=== PATIENT | female | born 1955 | race Caucasian/White ===

== ENCOUNTER 2025-05-02 10:11 | Inpatient (IN) ==
[2025-05-02] MEDS: SODIUM CHLORIDE 0.9% 500 ML IV SCH (10:39)
--- NOTE | 2025-05-02 10:56 | XRay Report ---
XR chest 1V portable CLINICAL HISTORY: Sepsis COMPARISON STUDY: 01/08/2022 FINDINGS: There is mild cardiomegaly without pulmonary vascular congestion. No consolidation or pleur al effusion seen. No pneumothorax. IMPRESSION: No acute findings. ACT 112: Negative or not required by law. Electronically signed by: Jones Lewis M.D. 05/02/2025 10:53 AM
[2025-05-02 10:57] LABS: Base Excess VBG 0.7 mEq/L; HCO3 VBG 28 mmol/L; Oxygen Saturation VBG 65.8 %; PCO2 VBG 54 mmHg (38-50); PO2 VBG 38 mmHg; pH VBG 7.32 (7.36-7.41)
[2025-05-02 11:03] LABS: Hematocrit (blood only) 35.3 % (37.0-47.0); Hemoglobin 11.1 g/dl (12.0-16.0); Immature Granulocytes # (auto) 0.02 K/uL (0.01-0.20); Immature Granulocytes % (auto) 0.2 %; Mean Corpuscular Hemoglobin 28.3 pg (25.0-34.0); Mean Corpuscular Volume 90.1 fL (80.0-100.0); Platelet Count 216 K/uL (130-400); RDW Standard Deviation 50.8 fL (36.4-46.3); Red Blood Count 3.92 M/uL (4.20-5.40); White Blood Count 8.26 K/ul (4.8-10.8)
[2025-05-02 11:20] LABS: Alanine Aminotransferase 8.0 U/L (7-52); Albumin Level 3.2 gm/dl (3.4-5.0); Alkaline Phosphatase 66.0 U/L (34-104); Anion Gap 5.0 (3-11); Bilirubin,Total 0.3 mg/dl (0.2-1.0); Blood Urea Nitrogen 10.0 mg/dl (6-23); Calcium 7.9 mg/dl (8.6-10.3); Carbon Dioxide 29.0 mmol/L (21-32); Chloride 107.0 mmol/L (98-107); Creatinine Clr Calc Pharmacy 48.3 ml/min; Glucose 195.0 mg/dl (70-99(Fasting)); Magnesium 1.7 mg/dl (1.7-2.4); Potassium 3.4 mmol/L (3.5-5.1); Sodium 141.0 mmol/L (136-145); Total Protein 5.5 gm/dl (6.0-8.3)
--- NOTE | 2025-05-02 11:28 | Emergency Department Note ---
Impression & Plan Hypotension, Acute and chronic respiratory failure with hypoxia, Elevated troponin ED Provider Note NAME: NEIL ACEVEDO AGE: 70 SEX: F : 1955 ARRIVES VIA: Ambulance INFORMANT: Patient, ED PROVIDER(S): Deena Shields MD CHIEF COMPLAINT: Shortness of breath, hypotension HPI: This is a 70-year-old female presented for shortness of breath and hypotension. Patient was seen for a cataract surgery at [facility]. Anesthesiologist called me and said the patient had a oxygen saturation between 70 and 80% on room air patient does not wear oxygen at baseline. Also noted to have hypotension with blood pressures between 60 and 80. Patient notes that this is her baseline she does not feel abnormal. She does feel short of breath which is chronic for her. She has COPD and continues to smoke. She reports no nausea, vomiting. No chest pain. She states she has sweats but no fevers. ROS: See above HPI for pertinent positives & negatives. A total of 10 systems reviewed and were otherwise negative. PAST MEDICAL HISTORY: See Below PAST SURGICAL HISTORY: See Below FAMILY HISTORY: See Below SOCIAL HISTORY: See Below HOME MEDICATIONS: See Below ALLERGIES: See Below VITALS: See Below PHYSICAL EXAMINATION: General: Chronically unwell appearing Head: Normocephalic and atraumatic Eyes: Normal inspection, extraocular muscles intact Ear, nose, throat: Normal external exam Neck: Normal range of motion Respiratory: lungs clear to auscultation bilaterally Cardiovascular: Regular rate/rhythm, no murmur GI: soft, nontender, no guarding or rebound Extremities: nontender, moves all extremities Neuro: The patient awake and alert, appropriately conversive, no focal deficits, symmetric faces Skin: Warm, dry, and intact MEDICAL DECISION MAKING: This is a 70-year-old female present for shortness of breath/hypotension. At this time patient has no acute complaints including shortness of breath or chest pain. Will do screening chest x-ray, basic blood work. Assess for sepsis. Bedside echo is limited but does not reveal pericardial effusion or RV dilation. - Blood work reveals no leukocytosis. Does reveal slight anemia. VBG is 7.32/54. Initial lactate slightly elevated at 3.3 -Electrolytes within normal limits -CTA ordered due to unclear cause of hypotension/hypoxia at this time. Patient declines chest pain at this time otherwise. -Repeat blood work shows improved lactic acid level now at 0.8. Blood pressures improved into the 100 systolic after a total of 1 L normal saline. Patient continued to decline any current symptoms. -CT does not reveal signs of pulmonary embolism. Otherwise no acute intrathoracic findings. Mild cardiomegaly with left concentric hypertrophy is noted - Care discussed with Dr. Maynard will evaluate the patient for admission. He requests antibiotics for possible sepsis. Differential diagnosis: Sepsis, ACS, PE, cardiogenic shock, hypovolemia, pulm hypertension Independent History obtained from: [facility] interpreted by me: ECG: ECG independently interpreted by me with normal sinus rhythm, rate of 95, normal UT, incomplete left bundle branch block, normal QTc, no ST segment elevations consistent with STEMI criteria, T wave versions in lead I/aVL Cardiac Monitoring: An order was placed for continuous cardiac monitoring. The monitor shows a rate of 84 with sinus rhythm. Critical Care Note: I have personally spent 34 minutes of critical care time in the direct management of this patient. This includes bedside care, interpretation of diagnostic studies, and testing, discussion with consultants, patient, and family members, and other required patient management activities. This 34 minutes is in excess of all separately billable procedures. Past Med/Surg History Problem List (Updated 05/02/25 @ 17:40 by Deena Shields MD) Bilateral arm weakness Increased abdominal girth Elevated troponin (Acute) Acute and chronic respiratory failure with hypoxia (Acute) Hypotension (Acute) Colon cancer screening Dysphagia Encounter for pre-operative examination Medical History Hoarseness of voice Hemorrhoids Anxiety and depression Smoker currently taking chantix, still smoking 10-12/day Hx of breast cancer 1978 -- radiation and chemo, and surgical intervention Depression Anxiety Hyperlipidemia Sleep disorder Pancolitis Barretts esophagus GERD (gastroesophageal reflux disease) Stress incontinence Fatigue "feels this way all the time, nothing new" Dysphagia Diverticulosis hx Chronic obstructive pulmonary disease inh daily Surgical History History of esophagogastroduodenoscopy (EGD) Hx of colonoscopy Hx of right mastectomy Social History Smoking Status: Current every day smoker Tobacco Type: Cigarettes Cigarettes Per Day: 10-12; Second Hand Exposure: No; Do You Dip or Chew Tobacco: No; Tobacco Cessation Education Requested by Patient: No Hx Alcohol Use: No Hx Substance Use: No Preferred Language: Czech Communication Ability: Effective Senior Sql Server Database Developer Required: No Beliefs That Will Affect Care: None Current Living Situation: Alone Other Information That Helps Us Care for You: No Feels Safe at Home: Yes Safety Concerns: Feels Safe At This Time Assistive Devices: Glasses and Oxygen - Continuous Allergies Allergies Allergy/AdvReac Type Severity Reaction Status Date / Time amoxicillin [From Augmentin] Allergy Severe PROJECTILE Verified 08/14/23 11:48 VOMITING clavulanic acid Allergy Severe PROJECTILE Verified 08/14/23 11:48 [From Augmentin] VOMITING clindamycin Allergy Severe throat Verified 08/14/23 11:48 felt tight Penicillins AdvReac Intermediate itchy Verified 08/14/23 11:48 Home Meds Home Medications Medication Instructions Recorded Confirmed fluticasone fur. 200 mcg-umeclid 0 inh inhalation HS 01/02/21 05/02/25 62.5 mcg-vilant 25 mcg inhalat.powder (Trelegy Ellipta) pantoprazole 40 mg tablet,delayed 40 mg PO HS 01/02/21 05/02/25 release quetiapine 100 mg tablet (Seroquel) 0 mg PO HS 01/02/21 05/02/25 simvastatin 40 mg tablet 40 mg PO HS 01/02/21 05/02/25 amitriptyline 50 mg tablet 100 mg PO QPM 01/08/22 05/02/25 aspirin 81 mg tablet,delayed 81 mg PO HS 01/08/22 05/02/25 release polyethylene glycol 3350 17 17 g PO HS PRN Constipation 01/08/22 05/02/25 gram/dose oral powder (Miralax) simethicone 80 mg chewable tablet 160 mg PO HS 01/08/22 05/02/25 magnesium oxide 400 mg PO QPM 08/14/23 05/02/25 semaglutide 3 mg tablet (Rybelsus) 0 mg PO QAM 08/14/23 05/02/25 varenicline tartrate 1 mg tablet 0 mg PO BID 08/14/23 05/02/25 gabapentin 300 mg capsule 300 mg PO HS 05/02/25 05/02/25 Results & Data (ED) Vital Signs Vital Signs - 24 hr 05/02/25 10:17 05/02/25 10:34 05/02/25 10:35 Temperature 36.5 C Temperature Source Temporal Artery Scan Pulse Rate Pulse Rate [Left Finger] 91 H Respiratory Rate 16 Blood Pressure 73/49 L Blood Pressure [Left Arm] 89/63 L Blood Pressure Mean 57 Blood Pressure Mean [Left Arm] 71 Pulse Oximetry 98 94 Oxygen Delivery Method Room Air Oxygen Flow Rate Sepsis Recent Fever Within 48 Hours No Sepsis New/Unexplained Change in Mental Status N/A Sepsis Action Taken by Nursing No Action Required 05/02/25 10:46 05/02/25 11:05 05/02/25 11:42 Temperature Temperature Source Pulse Rate 99 H Pulse Rate [Left Finger] 85 79 Respiratory Rate 17 Blood Pressure Blood Pressure [Left Arm] 87/63 L 95/68 L Blood Pressure Mean Blood Pressure Mean [Left Arm] 71 77 Pulse Oximetry 100 100 Oxygen Delivery Method Nasal Cannula Nasal Cannula Oxygen Flow Rate 3 3 Sepsis Recent Fever Within 48 Hours Sepsis New/Unexplained Change in Mental Status Sepsis Action Taken by Nursing 05/02/25 11:45 05/02/25 12:05 05/02/25 12:17 Temperature Temperature Source Pulse Rate Pulse Rate [Left Finger] 79 77 Respiratory Rate 22 Blood Pressure Blood Pressure [Left Arm] 81/46 L 81/58 L 85/63 L Blood Pressure Mean Blood Pressure Mean [Left Arm] 57 65 70 Pulse Oximetry 100 Oxygen Delivery Method Nasal Cannula Oxygen Flow Rate 3 Sepsis Recent Fever Within 48 Hours Sepsis New/Unexplained Change in Mental Status Sepsis Action Taken by Nursing 05/02/25 12:30 05/02/25 13:00 Temperature Temperature Source Pulse Rate Pulse Rate [Left Finger] 82 85 Respiratory Rate 18 Blood Pressure Blood Pressure [Left Arm] 105/62 93/79 L Blood Pressure Mean Blood Pressure Mean [Left Arm] 76 83 Pulse Oximetry 100 Oxygen Delivery Method Nasal Cannula Oxygen Flow Rate 3 Sepsis Recent Fever Within 48 Hours Sepsis New/Unexplained Change in Mental Status Sepsis Action Taken by Nursing Laboratory Data 05/02/25 10:42 05/02/25 10:42 Lab Results 05/02/25 05/02/25 05/02/25 Range/Units 10:42 10:49 12:35 WBC 8.26 (4.8-10.8) K/ul RBC 3.92 L (4.20-5.40) M/uL Hgb 11.1 L (12.0-16.0) g/dl POC Hgb 11.6 L (12.0-16.0) g/dl Hct 35.3 L (37.0-47.0) % POC Hct 34 L (37-47) % MCV 90.1 (80.0-100.0) fL MCH 28.3 (25.0-34.0) pg MCHC 31.4 L (32.0-36.0) g/dL RDW Std Deviation 50.8 H (36.4-46.3) fL RDW Coeff of Ashley 15.7 H (11.5-14.5) % Plt Count 216 (130-400) K/uL MPV 11.4 (9.4-12.4) fL Immature Gran % (Auto) 0.2 % Neut % (Auto) 65.6 % Lymph % (Auto) 25.3 % [place] % (Auto) 6.7 % Eos % (Auto) 1.6 % Baso % (Auto) 0.6 % Neut # (Auto) 5.42 (1.40-6.50) K/uL Lymph # (Auto) 2.09 (1.20-3.40) K/uL [place] # (Auto) 0.55 (0.11-0.59) K/uL Eos # (Auto) 0.13 (0.00-0.50) K/uL Baso # (Auto) 0.05 (0.00-0.20) K/uL Immature Gran # (Auto) 0.02 (0.01-0.20) K/uL VBG pH 7.32 L (7.36-7.41) VBG pCO2 54 H (38-50) mmHg VBG pO2 38 mmHg VBG HCO3 28 mmol/L VBG O2 Saturation 65.8 % VBG Base Excess 0.7 mEq/L POC Sodium 142 (135-144) mmol/L Sodium 141 (136-145) mmol/L POC Potassium 3.3 (3.3-5.0) mmol/L Potassium 3.4 L (3.5-5.1) mmol/L POC Chloride 101 (101-112) mmol/L Chloride 107 (98-107) mmol/L Carbon Dioxide 29 (21-32) mmol/L POC Total CO2 26 (24-31) mmol/L Anion Gap 5 (3-11) POC Anion Gap 19.0 (16-25) mmol/L POC BUN 8 (7-18) mg/dl BUN 10 (6-23) mg/dl Creatinine 0.95 (0.6-1.2) mg/dl POC Creatinine 1.1 (0.6-1.3) mg/dl Est Cr Clr Drug Dosing 48.3 ml/min eGFR 64.05 BUN/Creatinine Ratio 10.5 (10-20) Glucose 195 H (70-99(Fasting)) mg/dl POC Glucose (other) 190 H (70-99) mg/dl Lactate 3.3 H* 0.8 (0.4-2.0) mmol/L Calcium 7.9 L (8.6-10.3) mg/dl POC Ioniz Calcium Mayo 1.05 L (1.12-1.32) mmol/l Magnesium 1.7 (1.7-2.4) mg/dl Total Bilirubin 0.3 (0.2-1.0) mg/dl Direct Bilirubin 0.1 (0-0.2) mg/dl AST 14 (13-39) U/L ALT 8 (7-52) U/L Alkaline Phosphatase 66 (34-104) U/L Troponin I High Sens 14.5 H (0-14) pg/ml B-Natriuretic Peptide 251 H (0-100) pg/ml Total Protein 5.5 L (6.0-8.3) gm/dl Albumin 3.2 L (3.4-5.0) gm/dl Procalcitonin 0.03 (0-0.5) ng/ml Administered Medications Sodium Chloride (Nss) 1,000 mls @ 125 mls/hr IV .Q8H HUSSAIN Stop: 05/02/25 22:19 Last Admin: 05/02/25 15:16 Dose: 125 mls/hr Documented By: CARMELINA Nicotine (Nicotine 21 Mg/24 Hr Tdsy) 1 patch TD QAM HUSSAIN Stop: 06/01/25 11:29 Last Admin: 05/02/25 11:45 Dose: 1 patch Documented By: MANOJ Discontinued Medications Sodium Chloride (Nss) 500 mls @ 999 mls/hr IV .Q31M HUSSAIN Stop: 05/02/25 11:15 Last Infusion: 05/02/25 11:19 Dose: Infused Documented By: Admin: 05/02/25 10:39 Dose: 999 mls/hr Documented By: SUMEET Sodium Chloride (Nss) 500 mls @ 999 mls/hr IV .Q31M STA Stop: 05/02/25 12:43 Last Infusion: 05/02/25 12:46 Dose: Infused Documented By: Admin: 05/02/25 12:15 Dose: 999 mls/hr Documented By: MANOJ Ceftriaxone Sodium (Rocephin) 2,000 mg in 50 mls @ 100 mls/hr IV NOW STA Stop: 05/02/25 13:00 Last Infusion: 05/02/25 13:36 Dose: Infused Documented By: Admin: 05/02/25 13:08 Dose: 100 mls/hr Documented By: MANOJ Ioversol (Optiray 320 125ml) 69 ml IV ONCE ONE Stop: 05/02/25 11:43 Last Admin: 05/02/25 11:43 Dose: 69 ml Documented By: ASHER Imaging Data Radiologist's Impression: Chest X-Ray 05/02/25 10:32 XR chest 1V portable CLINICAL HISTORY: Sepsis COMPARISON STUDY: 01/08/2022 FINDINGS: There is mild cardiomegaly without pulmonary vascular congestion. No consolidation or pleural effusion seen. No pneumothorax. IMPRESSION: No acute findings. ACT 112: Negative or not required by law. Electronically signed by: Jones Lewis M.D. 05/02/2025 10:53 AM Chest CTA 05/02/25 11:17 CT ANGIOGRAM OF THE CHEST CLINICAL HISTORY: Shortness of breath. Hypoxia. Evaluate for pulmonary embolus. COMPARISON STUDY: Chest radiograph January 08, 2022 and chest radiograph performed earlier today. TECHNIQUE: Following the IV administration of 69 cc of Optiray 320, CT angiogram of the chest was performed from the upper abdomen to the thoracic inlet utilizing the pulmonary embolus protocol. Images are reviewed in the axial, sagittal, and coronal planes. 3-D MIPS images are created and assessed. IV contrast was administered without complication. A dose lowering technique was utilized adhering to the principles of ALARA. CT DOSE: 514.28 mGy.cm FINDINGS: No pulmonary emboli are identified. There is no pericardial effusion. Note is made of mild cardiomegaly with concentric left ventricular hypertrophy. No pneumothorax or pleural effusion is present. Subpleural lower lobe densities favor atelectasis. There is no consolidation to suggest pneumonia. Right apical densities are likely treatment related. A 6 mm left upper lobe nodule within the medial aspect of the apicoposterior segment on image 174 of 221 is noted. There is mild emphysema. There are old bilateral rib fractures. No acute rib fractures are identified. A prominent precarinal lymph node on image 147 measures 1.3 x 1.1 cm. Status post right mastectomy. Visualized portions of the upper abdomen are unremarkable. IMPRESSION: 1. No pulmonary emboli identified. 2. No acute intrathoracic findings. Subpleural densities suggestive of atelectasis. No consolidation to suggest pneumonia. 3. Mild cardiomegaly. Concentric left ventricular hypertrophy. 4. Low suspicion 6 mm upper lobe nodule. This is likely benign. A chest CT in 6 months to ensure stability is recommended. 3. Prominent precarinal lymph node which is also likely benign. This can be assessed on the follow-up chest CT. ACT 112: Negative or not required by law. Electronically signed by: Price Irwin M.D. 05/02/2025 11:59 AM Discharge Plan Visit Data Chief Complaint: Shortness of Breath/Dyspnea ED Provider: Deena Shields Discharge Problem: Hypotension, Acute and chronic respiratory failure with hypoxia, Elevated troponin Patient Disposition: Admitted As Inpatient Condition: Serious
[2025-05-02] MEDS: OPTIRAY 320 125ml IV ONE (11:43)
[2025-05-02] MEDS: NICOTINE 21 MG/24 HR TDSY TD SCH (11:45)
--- NOTE | 2025-05-02 12:01 | CT Scan Report ---
CT ANGIOGRAM OF THE CHEST CLINICAL HISTORY: Shortness of breath. Hypoxia. Evaluate for pulmonary embolus. COMPARISON STUDY: Chest radiograph January 08, 2022 and chest radiograph performed earlier today. TECHNIQUE: Following the IV administration of 69 cc of Optiray 320, CT angiogram of the chest was per formed from the upper abdomen to the thoracic inlet utilizing the pulmonary embolus protocol. Images are reviewed in the axial, sagittal, and coronal planes. 3-D MIPS images are created and assessed. IV contrast was administered without complication. A dose lowering technique was utilized adhering to the principles of ALARA. CT DOSE: 514.28 mGy.cm FINDINGS: No pulmonary emboli are identified. There is no pericardial effusion. Note is made of mild cardiomegaly with concentric left ventricular hypertrophy. No pneumothorax or pleural effusion is pre sent. Subpleural lower lobe densities favor atelectasis. There is no consolidation to suggest pneumon ia. Right apical densities are likely treatment related. A 6 mm left upper lobe nodule within the med ial aspect of the apicoposterior segment on image 174 of 221 is noted. There is mild emphysema. There are old bilateral rib fractures. No acute rib fractures are identified. A prominent precarinal lymph node on image 147 measures 1.3 x 1.1 cm. Status post right mastectomy. Visualized portions of the up per abdomen are unremarkable. IMPRESSION: 1. No pulmonary emboli identified. 2. No acute intrathoracic findings. Subpleural densities suggestive of atelectasis. No consolidation to suggest pneumonia. 3. Mild cardiomegaly. Concentric left ventricular hypertrophy. 4. Low suspicion 6 mm upper lobe nodule. This is likely benign. A chest CT in 6 months to ensure stab ility is recommended. 3. Prominent precarinal lymph node which is also likely benign. This can be assessed on the follow-up chest CT. ACT 112: Negative or not required by law. Electronically signed by: Price Irwin M.D. 05/02/2025 11:59 AM
[2025-05-02] MEDS: SODIUM CHLORIDE 0.9% 500 ML IV STA (12:15)
[2025-05-02] MEDS: cefTRIAXone SODIUM 2,000 MG/50 ML BAG IV STA (13:08)
--- NOTE | 2025-05-02 13:16 | History & Physical Report ---
Date of Service May 02, 2025 Assessment & Plan (1) Hypotension: (2) Acute and chronic respiratory failure with hypoxia: (3) Elevated troponin: (4) Increased abdominal girth: (5) Bilateral arm weakness: Plan 70-year-old female who presents from cataract surgery with hypotension and hypoxia. Patient is a known noncompliant history continues to smoke is diagnosed with COPD and takes inhaled medications. Patient also does take semaglutide for diabetes but is generally noncompliant with her diabetic diet. She has no direct cause easily identifiable for her hypotension she does not appear to be hypovolemic she has no cardiac signs of heart failure at this time to be concern for this to be cardiogenic and she has no infectious etiology although urine culture has not been obtained yet. #Hypotension concern for sepsis at this point in time. We route blood cultures were obtained urine cultures pending and she will be on Rocephin. There is a BNP pending as if this were to be cardiogenic as well as an echocardiogram to look at ejection fraction. Additional fluid resuscitation be given 500 cc and she will be giving an additional liter over today. As mentioned she is not exhibiting signs of heart failure at this time #Acute on chronic respiratory failure with hypoxia. Certainly she has a history of COPD she continues to smoke she typically takes Trelegy, this will be continued this will be continued and she will be augmented with her oxygen. There is no overt signs of infection or wheezing. Patient has probably given a nicotine patch #Elevated troponin. This is likely demand ischemia. Echocardiogram as mentioned will be obtained for regional wall motion abnormalities and additional troponins will be checked. The patient does not have any chest pain at this time nor does she have any acute EKG changes this is not acute coronary syndrome #Increased abdominal girth. This is concerning with early satiety. CT scan abdomen pelvis with oral contrast is ordered and pending. She does not have a direct fluid wave on examination to be consistent with ascites #Bilateral arm weakness. Patient states she did have exposure to a tick bite. Lyme testing is ordered. Consideration of cervical spine testing once her acute illness is passed. DVT prevention is heparin therapy History of Present Illness Primary Care Provider: NO PCP 70-year-old female referred from outpatient ophthalmology surgery center due to hypotension and hypoxia. Patient was scheduled for cataract surgery today. Patient reportedly had no anesthesia there. Able to perform 1 cataract under anesthesia. Patient was transferred to the [facility] where she is found to be hypotensive and hypoxic. She required oxygen supplementation. She received the 1000 cc of fluid bolus. Initial lactic acid was 3.3. Initial screening evaluation including a chest x-ray and CT angiogram with did not show signs of infection she did not exhibit clinical signs of congestive heart failure (or any on imaging) initial EKG was sinus rhythm initial troponin was unremarkable. Patient persist with some hypotension although she had good perfusion she was mentating appropriately. She states her only issues prehospital or the fact that she is increasing bilateral upper arm weakness. She feels she has had early satiety but has had weight gain with increasing abdominal girth. There is no comment on CT angiography in the intra-abdominal changes but a formal CT abdomen is pending bedside echocardiogram by emergency medicine did not reveal pericardial effusion and urine analysis was yet to be obtained. Blood cultures were obtained and Rocephin was initiated Allergies Allergy/AdvReac Type Severity Reaction Status Date / Time amoxicillin [From Augmentin] Allergy Severe PROJECTILE Verified 08/14/23 11:48 VOMITING clavulanic acid Allergy Severe PROJECTILE Verified 08/14/23 11:48 [From Augmentin] VOMITING clindamycin Allergy Severe throat Verified 08/14/23 11:48 felt tight Penicillins AdvReac Intermediate itchy Verified 08/14/23 11:48 Home Medications Medication Instructions Recorded Confirmed Type fluticasone fur. 200 mcg-umeclid 0 inh inhalation HS 01/02/21 05/02/25 History 62.5 mcg-vilant 25 mcg inhalat.powder (Trelegy Ellipta) pantoprazole 40 mg tablet,delayed 40 mg PO HS 01/02/21 05/02/25 History release quetiapine 100 mg tablet (Seroquel) 0 mg PO HS 01/02/21 05/02/25 History simvastatin 40 mg tablet 40 mg PO HS 01/02/21 05/02/25 History amitriptyline 50 mg tablet 100 mg PO QPM 01/08/22 05/02/25 History aspirin 81 mg tablet,delayed 81 mg PO HS 01/08/22 05/02/25 History release polyethylene glycol 3350 17 17 g PO HS PRN Constipation 01/08/22 05/02/25 History gram/dose oral powder (Miralax) simethicone 80 mg chewable tablet 160 mg PO HS 01/08/22 05/02/25 History magnesium oxide 400 mg PO QPM 08/14/23 05/02/25 History semaglutide 3 mg tablet (Rybelsus) 0 mg PO QAM 08/14/23 05/02/25 History varenicline tartrate 1 mg tablet 0 mg PO BID 08/14/23 05/02/25 History gabapentin 300 mg capsule 300 mg PO HS 05/02/25 05/02/25 History Past Med/Surg History Problem List (Updated 05/02/25 @ 13:19 by Eric Cruz MD) Bilateral arm weakness Increased abdominal girth Elevated troponin Acute and chronic respiratory failure with hypoxia Hypotension Colon cancer screening Dysphagia Encounter for pre-operative examination Medical History Hoarseness of voice Hemorrhoids Anxiety and depression Smoker currently taking chantix, still smoking 10-12/day Hx of breast cancer 1978 -- radiation and chemo, and surgical intervention Depression Anxiety Hyperlipidemia Sleep disorder Pancolitis Barretts esophagus GERD (gastroesophageal reflux disease) Stress incontinence Fatigue "feels this way all the time, nothing new" Dysphagia Diverticulosis hx Chronic obstructive pulmonary disease inh daily Surgical History History of esophagogastroduodenoscopy (EGD) Hx of colonoscopy Hx of right mastectomy Social History Smoking Status: Current every day smoker Tobacco Type: Cigarettes Cigarettes Per Day: 10-12; Second Hand Exposure: No; Do You Dip or Chew Tobacco: No; Hx Alcohol Use: No Hx Substance Use: No Preferred Language: Nepali Communication Ability: Effective Coat Maker Required: No Beliefs That Will Affect Care: None Current Living Situation: Alone Feels Safe at Home: Yes Assistive Devices: None Review of Systems Review of Systems: Mild distress and fatigue patient does not appear to be in as much distress as her hypertension would suggest no headache, postoperative visual changes, patient wearing dark glasses. no speech or swallowing issues no chest pain, pressure or palpitations, patient complains of diaphoresis with exertion no shortness of breath, cough or wheezes no abdominal pain, nausea or vomiting, early satiety increased abdominal girth and increased weight no dysuria, hematuria or frequency no focal joint pain or swelling no back pain, CVA tenderness or radicular pain no bruising, bleeding or rashes Patient complains of bilateral upper arm weakness no complaints of anxiety or depression.. Physical Exam Physical Exam: The patient appeared well nourished and normally developed. Vital signs as documented. Head exam is normocephalic atraumatic patient is wearing dark glasses Neck is without JVD, thyromegaly, or carotid bruits. Lungs are clear to auscultation, there is an occasional scant wheeze, no focal loss of breath sounds no dullness at the bases Cardiac exam, Rhythm is regular.. No murmurs, rubs or gallops. Abdominal exam reveals normal bowel sounds, soft protuberant no direct fluid wave does have some tenderness in the right upper quadrant this is not Carrillo sign though Extremities are nonedematous and both pedal pulses are present capillary refill is good Neurologic exam is alert and oriented, no focal loss of strength or sensation she does have difficulty lifting her arms above shoulder height there are no focal losses of strength Skin is without bruises or rashes Psychologically is without concerns for anxiety or depression.. Results & Data Results & Data Vital Signs (Past 12 Hours) Vital Signs Temp Pulse Pulse Resp BP BP Pulse Ox 05/02/25 12:30 82 105/62 05/02/25 12:17 77 22 85/63 L 100 05/02/25 12:05 81/58 L 05/02/25 11:45 79 81/46 L 05/02/25 11:42 79 95/68 L 100 05/02/25 11:05 85 17 87/63 L 100 05/02/25 10:46 99 H 05/02/25 10:35 94 05/02/25 10:34 91 H 16 89/63 L 98 05/02/25 10:17 97.7 F 73/49 L O2 Del Method O2 Flow Rate 05/02/25 12:30 05/02/25 12:17 Nasal Cannula 3 05/02/25 12:05 05/02/25 11:45 05/02/25 11:42 Nasal Cannula 3 05/02/25 11:05 Nasal Cannula 3 05/02/25 10:46 05/02/25 10:35 Room Air 05/02/25 10:34 05/02/25 10:17 Laboratory Results Reviewed CBC mild leukocytosis Reviewed chemistry normal renal function, mild hypokalemia Reviewed troponin minorly low elevation of 14.5 (normal is 14) repeat pending Initial lactic acid 3.3 repeat 0.8 partial volume resuscitation given Code Status & VTE Plan VTE Prophylaxis Plan VTE Prophylaxis will be ordered: Yes PG Care Time/CCT Total # of Minutes Spent Total Time Spent with Patient: Total time spent is greater than 50% in coordination of care (as documented) at patient's floor/unit and/or counseling patient: Coding Level of Care Code 04279 INT INP/OBS CARE 3/75MIN Diagnoses Hypotension I95.9 Acute and chronic respiratory failure with hypoxia J96.21 Elevated troponin R79.89 Increased abdominal girth R19.8 Bilateral arm weakness R29.898
[2025-05-02] MEDS ORDERED: ACETAMINOPHEN 325 MG TAB PO PRN (14:20)
[2025-05-02] MEDS ORDERED: ONDANSETRON INJ 2 MG/ML 2 ML VIAL IV PRN (14:20)
[2025-05-02] MEDS ORDERED: POLYETHYLENE (MIRALAX) 17 GM PACK PO PRN (14:20)
[2025-05-02 14:22] LABS: Appearance Urine Clear (Clear); Bacteria Urine Automated 4+ (None Seen); Cast Urine Automated 0-2 /lpf (0-2); Glucose Urine UA Negative (Negative); RBC Urine Automated 0-2 /hpf (0-2)
[2025-05-02] MEDS: SODIUM CHLORIDE 0.9% 1,000 ML IV SCH (15:16)
--- NOTE | 2025-05-02 17:20 | XCELERA ---
[id number] \\[email or web address]\[id number]}___[id number]
--- NOTE | 2025-05-02 18:23 | Electrocardiogram Report ---
Test Reason : Blood Pressure : */* mmHG Vent. Rate : 95 BPM Atrial Rate : 95 BPM P-R Int : 208 ms QRS Dur : 108 ms QT Int : 394 ms P-R-T Axes : 60 -30 89 degrees QTcB Int : 495 ms Normal sinus rhythm with sinus arrhythmia Left axis deviation Left ventricular hypertrophy with repolarization abnormality Prolonged QT Abnormal ECG Confirmed by Sohail Velez ([id number]) on 05/02/2025 6:22:48 PM Referred By: Confirmed By: Sohail Velez
--- NOTE | 2025-05-02 18:31 | CT Scan Report ---
EXAMINATION: CT of the abdomen and pelvis performed without contrast TECHNIQUE: Helical CT images from the lung bases through the symphysis pubis were obtained without contrast. Coronal and sagittal reformatted images were generated at a workstation for further assessment. Dose reduction techniques were achieved by using automatic exposure control and/or adjustment of mA and/or kV according to patient size and/or use of iterative reconstruction technique. COMPARISON: None HISTORY: Abdominal pain FINDINGS: Lower chest: No consolidation. No pleural effusion or pneumothorax. Mild bibasilar subsegmental atelectasis. Liver: No suspicious liver lesions. Gallbladder: No gallstones. No evidence of acute cholecystitis. Spleen: Normal size. Pancreas: No suspicious pancreatic lesions. The pancreatic duct is not dilated. Adrenal glands: No adrenal nodules. Kidneys: No hydronephrosis or obstructing renal stones. Bladder / Pelvic organs: Unremarkable. Bowel: No bowel obstruction. No abnormal bowel wall thickening. The appendix is unremarkable. Mild left colonic diverticulosis without diverticulitis. Moderate distention of the stomach. Lymph nodes: No retroperitoneal, mesenteric, or pelvic lymphadenopathy. Peritoneum / Retroperitoneum: No free fluid or air within the abdomen. Vessels: No infrarenal aortic aneurysm. Moderate aortoiliac calcification. Bones and soft tissues: No suspicious lesion in the bones. IMPRESSION: There is no acute finding in the abdomen or pelvis. Moderate gastric distention. Electronically signed by Sohail Nance 05-02-2025 6:30 PM
[2025-05-02] MEDS: COMPOUNDED EYE OPR SCH (18:34)
[2025-05-02] MEDS ORDERED: MELATONIN 3 MG TAB PO PRN (18:38)
[2025-05-02] MEDS ORDERED: NON-FORMULARY MEDICATION (Fluticasone-Umeclidin-Vilanter [Trelegy Ellipta] 200-62.5-25 mcg INH SCH (21:00)
[2025-05-02] MEDS: INFLUENZA VACC TS2025-26(65y+)/PF (IIV3) 0.5mL Syr IM ONE (21:51)
[2025-05-02] MEDS: PNEUMOCOCCAL VACCINE (PCV20) 20-VAL CONJ-DIP CRM/PF 0.5 ML SYR IM ONE (21:52)
[2025-05-02] MEDS: FLUTICASONE FUROATE 200MCG 14 PUFFS/INHALER INH SCH (21:54)
[2025-05-02] MEDS: UMECLIDINIUM/VILANTEROL 62.5/25MCG 7 PUFFS/INHALER INH SCH (21:55)
[2025-05-02] MEDS: SIMVASTATIN 40 MG TAB PO SCH (21:57)
[2025-05-02] MEDS: MAGNESIUM OXIDE 400 MG TAB PO SCH (21:57)
[2025-05-02] MEDS: GABAPENTIN 300 MG CAP PO SCH (21:57)
[2025-05-02] MEDS: AMITRIPTYLINE HCL 50 MG TAB PO SCH (21:57)
[2025-05-02] MEDS: ASPIRIN 81 MG ECTAB PO SCH (21:57)
[2025-05-02] MEDS: HEPARIN SOD 5,000 UNIT/0.5 ML VIAL SQ SCH (21:59)
[2025-05-03 06:56] LABS: Hematocrit (blood only) 37.5 % (37.0-47.0); Hemoglobin 11.7 g/dl (12.0-16.0); Mean Corpuscular Hemoglobin 27.9 pg (25.0-34.0); Mean Corpuscular Volume 89.3 fL (80.0-100.0); Platelet Count 198 K/uL (130-400); RDW Standard Deviation 51.7 fL (36.4-46.3); Red Blood Count 4.20 M/uL (4.20-5.40); White Blood Count 6.40 K/ul (4.8-10.8)
[2025-05-03 07:20] LABS: Anion Gap 4.0 (3-11); Blood Urea Nitrogen 8.0 mg/dl (6-23); Calcium 8.0 mg/dl (8.6-10.3); Carbon Dioxide 31.0 mmol/L (21-32); Chloride 108.0 mmol/L (98-107); Creatinine Clr Calc Pharmacy 46.2 ml/min; Glucose 114.0 mg/dl (70-99(Fasting)); Magnesium 2.1 mg/dl (1.7-2.4); Potassium 4.0 mmol/L (3.5-5.1); Sodium 143.0 mmol/L (136-145)
[2025-05-03] MEDS: COMPOUNDED EYE OPR SCH (08:15)
[2025-05-03] MEDS: REMOVE NICODERM PATCH SCH (09:50)
[2025-05-03] MEDS: cefTRIAXone SODIUM 2,000 MG/50 ML BAG IV SCH (13:13)
--- NOTE | 2025-05-03 18:04 | Hospitalist Progress Note ---
Date of Service May 03, 2025 Assessment & Plan (1) Hypotension: (2) Acute and chronic respiratory failure with hypoxia: (3) Elevated troponin: (4) Increased abdominal girth: (5) Bilateral arm weakness: Plan 70-year-old woman admitted from cataract surgery with hypotension and hypoxia. Admission testing only notable for possible urinary tract infection. She had an elevated lactate which quickly resolved with fluid resuscitation. Her troponin had a trivial elevation of 1416. BNP was elevated at 251 and procalcitonin was normal. Hypotension has resolved and hypoxia has resolved. She was treated with IV fluids and supplemental oxygen. She also received IV ceftriaxone for UTI. She has not had any cough chest pain dyspnea and CTA was negative for PE or pulmonary infiltrates so seems unlikely that she had a pneumonia. The hypoxia could have been related to atelectasis. She has had no specific urinary symptoms. # UTI if she does indeed have UTI hypotension could have been related to this and has resolved from this standpoint she is suitable for discharge from the hospital on oral antibiotics, urine culture is pending # bilateral upper extremity pain with exertionbased on my interview with her today this does sound like potentially vascular claudication I am more concerned of that because of her very prominent right carotid bruit that does not seem to be a radiating heart murmur based on her cardiac exam and echo findings. I can hear the sound also in her left carotid though much less prominent. She could have PAD in her subclavian arteries as well as carotid stenosis. She has multiple risk factors for PAD including ongoing smoking - ordered vascular ultrasound of bilateral carotid arteries and bilateral upper extremities - if we cannot get adequate imaging of the subclavian arteries may need to have a CTA of her chest not ideal to do this today since she just had CTPA - ddx is cervical radicular pain or TOS. consider outpatient MRI c-spine if above evaluation negative. # solid and liquid dysphagia, longstanding history of GERD and Hartman's esophagus she does have an endoscopy scheduled for May 09 which is just a week for now as an outpatient in [place]. I recommended that she keep that appointment since if we made a referral here it would delay her care by several months. It sounds like she may have an esophageal stricture, web, or ring, or esophagitis. - continue PPI increase to bid # Abdominal distention - there is nothing to explain this on the CT scan other than some gastric distention. Endoscopy is the next appropriate step. As discussed above. she does not report nausea and vomiting but does have early satiety # elevation of HS-troponin. This is a trivial elevation of 14 - 16 with flat trend and no evidence of ACS. Recent coronary angiogram and PCI not performed. Related to demand ischemia from hypotension and hypoxia. - continue ASA # tobacco nicotine dependence - cont nicotine patch, employee counselor cessation # hx breast cancer - on the right s/p lymph node dissection. This was treated 30 years ago and no recurrence. Reassured her and her sister by phone that its unlikely that any of the above symptoms are related to cancer recurrence based on the information that we have at this time. # DVT ppx - bid SQ heparin Admission and Anticipated Discharge Date Admission Date: May 02, 2025 Subjective Reason for Admit: Arm pain, dysphagia, and low blood pressure. The patient reports muscular pain in both arms for 6 weeks, occurring with use but not at rest. Pain subsides after resting, taking up to 2 hours to finish a shower. Pain also occurs when lifting things not just when arms overhead. No muscle tenderness. Experiences numbness and tingling in R hand, which becomes cold. Left arm pain is less severe but similar. No neck pain or weakness in arms. Left-handed. Previous neck pain visit to PCP suggested enlarged lymph node. No history of blocked arteries or stents. Feet turn purple, face turns red and purplish when bending over. No stroke-like symptoms. Concerned about heart and neck issues. No echocardiogram history. Cardiac cath this spring, no PCI needed. No shortness of breath, fatigue, or leg pain when walking. Shoulder x- rays done, on omeprazole for a year. Diagnosed with Hartman's esophagus, difficulty swallowing small bites and liquids, no regurgitation. Concerned about cancer cells. No dysuria, urinary frequency, fevers, chills, or back pain. Urine light yellow. Eye surgery appointment yesterday, low blood pressure at 57 systolic, low oxygen levels. Surgery not done due to dangerously low BP. Numbed eyes instead of sedation. On oxygen all day yesterday until 4:00 PM, not currently using it. Heart catheterization in December 2024 through groin, bruising spread to knee, resolved but still has sore bishop. Physical Exam 2 Physical Exam: PHYSICAL EXAMINATION Last 24h vital signs reviewed, see documentation in flowsheet General: comfortable appearing, no distress HEENT: Normocephalic, atraumatic, pupils round and equal, sclerae anicteric, no conjunctival injection, moist mucus membranes Lungs: Normal respiratory effort. Clear to auscultation bilaterally. No RRW Heart: Regular rate and rhythm, no murmurs. No JVD. she has bilateral carotid bruits much louder on the right. I do not think these are radiating from a heart murmur. Abdomen: Protuberant Soft, nontender, nondistended. Bowel sounds present. Extremities: Warm, dry, well-perfused. No extremity edema. there is some right upper extremity lymphedema. She is able to raise both hands above her head with good range of motion at the shoulders, rotator cuff exam bilaterally is normal, strength is 5 out of 5 at deltoids biceps triceps wrist flexors and extensors and pharmacy consultant. There is no tenderness to palpation of her forearm muscles or her upper arm muscles. There is no swelling or erythema. Neuro: Alert and oriented x 4, face symmetric, moves 4 extremities well Psych: Normal affect and behavior Results & Data Results & Data Vital Signs (Past 12 Hours) Vital Signs Temp Pulse Pulse Resp BP Pulse Ox O2 Del Method 05/03/25 15:09 36.3 C L 85 18 107/48 L 94 Room Air 05/03/25 14:34 Room Air 05/03/25 14:16 84 05/03/25 11:22 36.6 C 88 18 110/68 97 Room Air 05/03/25 09:31 91 H 05/03/25 07:17 36.6 C 91 H 18 107/62 90 Room Air Diagnostic Findings 05/03/25 05:51 05/03/25 05:51 Imaging - CT scan of abdomen: No fluid or tumors. Gastric distention noted. - Echocardiogram: normal EF grade 1 diastolic dysfunction Trivial valvular disease and nothing that would cause a heart murmur PG Care Time/CCT Total # of Minutes Spent Total Time Spent with Patient: I personally spent: 55 minutes today on clinical care activities including: reviewing chart notes and vital signs reviewing labs reviewing studies examining and counseling the patient - 39 minutes spent at bedside counseling the patient's family - Sister Carmen on speaker phone during our bedside visit writing orders documentation Coding Level of Care Code 70681 SUB INP/OBS CARE 3/50MIN Diagnoses Hypotension I95.9 Acute and chronic respiratory failure with hypoxia J96.21 Elevated troponin R79.89 Increased abdominal girth R19.8 Bilateral arm weakness R29.898
--- NOTE | 2025-05-03 22:41 | Ultrasound Report ---
Exam(s): US CAROTID EXAM: US Duplex Bilateral Extracranial Arteries CLINICAL HISTORY: Reason for exam: carotid bruit R>L vascular disease. TECHNIQUE: Real-time duplex ultrasound scan of the extracranial arteries integrating B-mode two-dimensional vascular structure, Doppler spectral analysis and color flow Doppler imaging. COMPARISON: No relevant prior studies available. FINDINGS: Right common carotid artery: Unremarkable. No occlusion or significant stenosis on color flow and spectral Doppler imaging. Right internal carotid artery: Elevated velocities within the distal right ICA with a peak systolic velocity of 169 6 cm/sec. . Right external carotid artery: Unremarkable. No occlusion or significant stenosis on color flow and spectral Doppler imaging. Right vertebral artery: There is antegrade flow seen within the right vertebral artery with markedly elevated peak systolic velocity of 318 cm/sec. Right ICA/CCA ratio: Unremarkable. Within normal limits. Left common carotid artery: Unremarkable. No occlusion or significant stenosis on color flow and spectral Doppler imaging. Left internal carotid artery: Unremarkable. No occlusion or significant stenosis on color flow and spectral Doppler imaging. Left external carotid artery: Elevated velocity within the left external carotid artery measuring 300 cm/sec. No occlusion or significant stenosis on color flow and spectral Doppler imaging. Left vertebral artery: Unremarkable. Antegrade flow. Left ICA/CCA ratio: Unremarkable. Within normal limits. Lymph nodes: Unremarkable. No lymphadenopathy. CAROTID STENOSIS REFERENCE USING IAC CRITERIA: Mild - <50% stenosis. ICA PSV is less than 180 cm/s and plaque or intimal thickening is visible. Moderate - 50-69% stenosis. ICA PSV is 180 to 230 cm/s and plaque is visible. Severe - 70-94% stenosis. ICA PSV is more than 230 cm/s and visible plaque with lumen narrowing is seen. Near occlusion - 95-99% stenosis. ICA PSV is variable and significant plaque with luminal narrowing is seen. Occluded - 100% stenosis. No flow identified. IMPRESSION: No acute findings in the arteries of the neck. Hemodynamically significant stenosis within the right vertebral artery Hemodynamically significant stenosis between 50-69% within the distal right ICA Electronically signed by: Edu Rene MD 05/03/25 22:40 PM
--- NOTE | 2025-05-03 22:48 | Ultrasound Report ---
Exam(s): US ARTERIAL BILATERAL UPPER EXTREMITIES EXAM: US Duplex Bilateral Upper Extremities Arteries CLINICAL HISTORY: Reason for exam: bruit, R>LUE claudication. TECHNIQUE: Real-time duplex ultrasound scan of the bilateral upper extremity arteries integrating B-mode two-dimensional vascular structure, Doppler spectral analysis and color flow Doppler imaging. COMPARISON: No relevant prior studies available. FINDINGS: Right subclavian artery: Elevated peak systolic velocity within the right vertebral artery measuring 300 18 cm/sec. Antegrade monophasic flow seen within the right vertebral artery. Antegrade monophasic flow seen within the brachial axillary and subclavian arteries bilaterally. Right axillary artery: No acute findings. No occlusion or significant stenosis on color flow and spectral Doppler imaging. Normal waveform. Right brachial artery: No acute findings. No occlusion or significant stenosis on color flow and spectral Doppler imaging. Normal waveform. Right radial artery: See below. Right ulnar artery: Monophasic waveforms within the ulnar arteries bilaterally. Monophasic waveforms within the radial arteries bilaterally. Left subclavian artery: No acute findings. No occlusion or significant stenosis on color flow and spectral Doppler imaging. Normal waveform. Left axillary artery: No acute findings. No occlusion or significant stenosis on color flow and spectral Doppler imaging. Normal waveform. Left brachial artery: No acute findings. No occlusion or significant stenosis on color flow and spectral Doppler imaging. Normal waveform. Left radial artery: See above. Left ulnar artery: See above. Soft tissues: Unremarkable. Other findings: Monophasic waveforms seen throughout the left upper extremity. IMPRESSION: Monophasic waveforms seen throughout both upper extremities without focal stenosis. Findings may represent the sequelae of aortic stenosis. CT angiogram of the neck and upper arms may be obtained for further evaluation if clinically warranted. Electronically signed by: Edu Rene MD 05/03/25 22:47 PM
[2025-05-04 07:04] LABS: Hematocrit (blood only) 37.8 % (37.0-47.0); Hemoglobin 12.4 g/dl (12.0-16.0); Mean Corpuscular Hemoglobin 28.8 pg (25.0-34.0); Mean Corpuscular Volume 87.9 fL (80.0-100.0); Platelet Count 225 K/uL (130-400); RDW Standard Deviation 49.1 fL (36.4-46.3); Red Blood Count 4.30 M/uL (4.20-5.40); White Blood Count 7.35 K/ul (4.8-10.8)
[2025-05-04 07:26] LABS: Anion Gap 5.0 (3-11); Blood Urea Nitrogen 7.0 mg/dl (6-23); Calcium 8.7 mg/dl (8.6-10.3); Carbon Dioxide 31.0 mmol/L (21-32); Chloride 105.0 mmol/L (98-107); Creatinine Clr Calc Pharmacy 50.2 ml/min; Glucose 110.0 mg/dl (70-99(Fasting)); Magnesium 2.1 mg/dl (1.7-2.4); Potassium 4.5 mmol/L (3.5-5.1); Sodium 141.0 mmol/L (136-145)
[2025-05-04 09:38] LABS: Cholesterol 137.0 mg/dl (0-200); HDL Cholesterol 64.0 mg/dl; Triglycerides 94.0 mg/dl (0-150)
[2025-05-04 10:58] VITALS: BP 99/70; PULSE 91; RESP 20; TEMP 98.2; O2SAT 90
--- NOTE | 2025-05-04 16:11 | Discharge Summary ---
Discharge Summary Date of Service May 04, 2025 Principal Dx & Hospital Course #1 = Principal Diagnosis (1) Hypotension: (2) Acute and chronic respiratory failure with hypoxia: (3) Elevated troponin: (4) Increased abdominal girth: (5) Bilateral arm weakness: Plan 70-year-old woman admitted from cataract surgery with hypotension and hypoxia. Admission testing only notable for possible urinary tract infection. She had an elevated lactate which quickly resolved with fluid resuscitation. Her troponin had a trivial elevation of 14, 16. BNP was elevated at 251 and procalcitonin was normal. Hypotension has resolved and hypoxia has resolved spontaneously. She was treated with IV fluids and supplemental oxygen. She also received IV ceftriaxone for UTI. She has not had any cough chest pain dyspnea and CTA was n egative for PE or pulmonary infiltrates so seems unlikely that she had a pneumonia. The hypoxia could have been related to atelectasis. She has had no specific urinary symptoms. Today I found that the LUE BP is running 40 points lower than her LE BPs (which are elevated in 180s) and her RUE BP (which is in 140s) so that may be the explanation for the recent "hypotension" All the previous BPs have been taken from the LUE because she has lymphedema of the RUE. # possible UTI - did not have dysuria but abnormal UA if she does indeed have UTI relative hypotension could have been related to this and has resolved pinpoint growth from urine culture. Completed IV ceftriaxone x 3 doses/days which is enough treatment for cystitis. # bilateral upper extremity pain with exertion - based on my interview with her this does sound like potentially vascular claudication She has multiple risk factors for PAD including ongoing smoking - ordered vascular ultrasound of bilateral upper extremities - no subclavian/axillary or other arterial stenoses however, UE waveforms are monophasic and there was no aortic stenosis on TTE. Had CTPA chest, not dedicated arterial CTA but no mention of aortic dissection. - she does have focally low BP in LUE - running 40 points lower than LE BPs and 20 points lower than RUE BP. Radial pulse is intact on LUE no evidence of is chemic limb. - consider UE claudication - could be vascular TOS which is positional. Made referral to vascular surgeon Dr. Montilla - consider outpatient MRI c-spine, however, pain is not radicular in quality or distribution and is only exertional, no neck pain so seems less likely that it is cervical radicular pain. there is no UE weakness. 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 No Hx TIA or stroke so no indication for intervention on right carotid at this time # solid and liquid dysphagia, longstanding history of GERD and Hartman's esophagus she does have an endoscopy scheduled for May 09 which is just a week for now as an outpatient in [place]. I recommended that she keep that appointment since if we made a referral here it would delay her care by several months. It sounds like she may have an esophageal stricture, web, or ring, or esophagitis. - continue PPI and follow up for EGD 05/09 # Abdominal distention - there is nothing to explain this on the CT scan other than some gastric distention. Endoscopy is the next appropriate step. As discussed above. she does not report nausea and vomiting but does have early satiety. This and the gastric distention could be resultant of her Rybelsus / GLP-1 inhibitor # elevation of HS-troponin. This is a trivial elevation of 14 - 16 with flat trend and no evidence of ACS. Recent coronary angiogram and PCI not performed. Related to demand ischemia from hypotension and hypoxia. - continue ASA, statin # tobacco nicotine dependence - cont nicotine patch, counseled cessation, has rx for varenicline # hx breast cancer - on the right s/p lymph node dissection. This was treated 30 years ago and no recurrence. Reassured her and her sister by phone that its unlikely that any of the above symptoms are related to cancer recurrence based on the information that we have at this time. # pulmonary nodule RUL and precarinal lymph node - low risk abnormalities but given her cancer and smoking history recommend repeat CT in 6 months # COPD - cannot afford her Trelegy inhaler. Or other inhalers. Provided nebulizer and Rx for formoterol and budesonide nebs to see if more affordable for her. Not in exacerbation. Admission HPI Per Admitting Provider 70-year-old female referred from outpatient ophthalmology surgery center due to hypotension and hypoxia. Patient was scheduled for cataract surgery today. Patient reportedly had no anesthesia there. Able to perform 1 cataract under anesthesia. Patient was transferred to the [facility] where she is found to be hypotensive and hypoxic. She required oxygen supplementation. She received the 1000 cc of fluid bolus. Initial lactic acid was 3.3. Initial screening evaluation including a chest x-ray and CT angiogram with did not show signs of infection she did not exhibit clinical signs of congestive heart failure (or any on imaging) initial EKG was sinus rhythm initial troponin was unremarkable. Patient persist with some hypotension although she had good perfusion she was mentating appropriately. She states her only issues prehospital or the fact that she is increasing bilateral upper arm weakness. She feels she has had early satiety but has had weight gain with increasing abdominal girth. There is no comment on CT angiography in the intra-abdominal changes but a formal CT abdomen is pending bedside echocardiogram by emergency medicine did not reveal pericardial effusion and urine analysis was yet to be obtained. Blood cultures were obtained and Rocephin was initiated Discharge Exam General Appearance: Normal. Vital signs: Within normal limits. HEENT: Within normal limits. Respiratory: Lungs clear anteriorly and posteriorly. Cardiovascular: Regular rhythm, no murmur. Extremities: Strong DP pulse on right. Left foot normal and warm, DP pulse present. Good radial pulse on left arm. Unable to find radial pulse on RUE but hand is w/wp good cap refill Skin: Right foot exhibits slight mottling and purplish at the toes, indicative of acrocyanosis, but the entire foot is warm. Neurological: Normal. Psychiatric: Normal. Discharge Plan Discharge Items Patient Disposition: Home - Self-Care Reason For Visit: SOB Discharge Diagnosis: UTI Condition on Discharge: Good Activity: Resume your previous activity Non-emergency contact: Primary Care Provider Call non-emergency contact if: you have any medication questions and your symptoms worsen Follow-up/Referrals: PCP,NO [Physician] - Diet: Heart Healthy Addtl Attending Provider Instructions: You were evaluated for low blood pressure around the time of eye surgery. You may have had UTI that was contributing to some extent. You finished treatment with three doses of IV antibiotics. You don't need more antibiotics at this time. I think that the blood pressure in your left arm runs a lot lower than in your right arm or your legs, so the left arm doesn't truly reflect your blood pressure. Ultrasound of the arteries of your shoulders and arms did not show any blockages. A heart Echo was reassuring - pretty normal. I made a referral to v ascular surgeon to follow up the question of whether your exertional arm pain and low BP in your left arm could be a blood flow issue. You do have some vascular disease in your neck arteries - the right vertebral artery has a narrowing and your right carotid artery has a moderate narrowing (stenosis). This isn't narrowed to the point that a surgery or stent would be recommended. Follow up with vascular surgery. -the most important thing you can do to prevent stroke, heart attack, and worsening of your artery disease is to stop smoking -your cholesterol is well controlled on the simvastatin - continue this -continue taking baby aspirin daily Regarding the swallowing difficulties, follow up on 05/09 as scheduled with gastroenterology. You could have esophageal inflammation, a stricture, or another anatomical issue causing the swallowing difficulty. Some of these can be treated with endoscopy. Your stomach was dilated (full) on the CT and that is of unclear significance. It is probably because of slowed gastric emptying from Rybelsus which is of no concern unless you are having nausea and vomiting. Otherwise, this finding is also better evaluated by endoscopy. We did not find anything that makes us suspicious of recurrent cancer. There were some incidental findings on your chest CT: "Low suspicion 6 mm upper lobe nodule. This is likely benign. A chest CT in 6 months to ensure stability is recommended. 3. Prominent precarinal lymph node which is also likely benign. This can be assessed on the follow-up chest CT." -it is unlikely that these have anything to do with cancer and findings like these are very common on CTs. For precaution sake, another chest CT is recommended in 6 months to make sure these resolve or stay the same I prescribed nebulizers to try instead of the Trelegy inhaler. This could be less expensive for you. Unfortunately only two of the three ingredients can be replaced by nebulizers so its possible that it doesn't work as well. It was a pleasure taking care of you in the hospital, Miryam Polanco MD Pending Studies at Discharge: No Stand-Alone Forms: My [facility], Smoking Cessation Medications and DC Order Prescriptions: New nicotine [Nicoderm CQ] 21 mg/24 hr Patch 24 Hour 1 patch transdermal QAM Qty: 0 0RF Rx Instructions: May buy over the counter, use as directed formoterol fumarate [Perforomist] 20 mcg/2 mL solution for nebulization 2 ml inhalation BID Qty: 120 0RF budesonide 0.5 mg/2 mL suspension for nebulization 0.5 mg inhalation BID Qty: 120 0RF Continued varenicline tartrate 1 mg Tablet 0 mg PO BID Patient Comments: 05/02- no fill history unable to verify. Original: 1 mg po bid magnesium oxide 400 mg magnesium Capsule 400 mg PO QPM Patient Comments: 05/02- otc unable to verify Rybelsus 3 mg Tablet 0 mg PO QAM Patient Comments: 05/02- no fill history unable to verify. Original: 3 mg po qam quetiapine [Seroquel] 100 mg Tablet 0 mg PO HS Patient Comments: 05/02- no fill history unable to verify. Original: 200 mg po hs simvastatin 40 mg Tablet 40 mg PO HS pantoprazole 40 mg Tablet,Delayed Release (Dr/Ec) 40 mg PO HS Trelegy Ellipta 200-62.5-25 mcg Blister With Device 0 inh INHALATION HS Patient Comments: 05/02- no fill history unable to verify. Original: 1 inh inhala hs aspirin 81 mg Tablet,Delayed Release (Dr/Ec) 81 mg PO HS Patient Comments: 05/02- otc unable to verify amitriptyline 50 mg tablet 100 mg PO QPM polyethylene glycol 3350 [Miralax] 17 gram/dose Powder 17 g PO HS PRN (Reason: Constipation) Patient Comments: 05/02- otc unable to verify simethicone 80 mg Tablet,Chewable 160 mg PO HS Patient Comments: 05/02- otc unable to verify gabapentin 300 mg capsule 300 mg PO HS Discharge Orders: Discharge Order (Routine); Ordered 05/04/25 Ordered By: Miryam Polanco Admission Data Admit Date/Time: 05/02/25 13:09 Attending Provider: Miryam Polanco Admit Provider: Eric Cruz Primary Care Provider: Marcelo Armas Other Providers: Eric Cruz Other Interventions: Discharge Summary Assessment (RN) Last Done: 05/04/25 15:21 Hospital Stay Data Consultations 05/02/25 13:07 ED Decision to Admit Stat Diagnostic Imagining Performed 05/02/25 11:17 CT for pulmonary embolism PE [CT angio chest PE protocol] Stat 05/02/25 12:59 CT Abd and Pelvis [CT abd pelvis oral con only] Stat 05/03/25 14:37 Carotid duplex [US carotid doppler BI] Urgent US arterial duplex UE BI Urgent Pending Results Patient Have Any Pending Studies at Discharge: No Discharge Instructions Given to Patient (Per Discharging Provider) You were evaluated for low blood pressure around the time of eye surgery. You may have had UTI that was contributing to some extent. You finished treatment with three doses of IV antibiotics. You don't need more antibiotics at this time. I think that the blood pressure in your left arm runs a lot lower than in your right arm or your legs, so the left arm doesn't truly reflect your blood pressure. Ultrasound of the arteries of your shoulders and arms did not show any blockages. A heart Echo was reassuring - pretty normal. I made a referral to vascular surgeon to follow up the question of whether your exertional arm pain and low BP in your left arm could be a blood flow issue. You do have some vascular disease in your neck arteries - the right vertebral artery has a narrowing and your right carotid artery has a moderate narrowing (stenosis). This isn't narrowed to the point that a surgery or stent would be recommended. Follow up with vascular surgery. -the most important thing you can do to prevent stroke, heart attack, and wo rsening of your artery disease is to stop smoking -your cholesterol is well controlled on the simvastatin - continue this -continue taking baby aspirin daily Regarding the swallowing difficulties, follow up on 05/09 as scheduled with gastroenterology. You could have esophageal inflammation, a stricture, or another anatomical issue causing the swallowing difficulty. Some of these can be treated with endoscopy. Your stomach was dilated (full) on the CT and that is of unclear significance. It is probably because of slowed gastric emptying from Rybelsus which is of no concern unless you are having nausea and vomiting. Otherwise, this finding is also better evaluated by endoscopy. We did not find anything that makes us suspicious of recurrent cancer. There were some incidental findings on your chest CT: "Low suspicion 6 mm upper lobe nodule. This is likely benign. A chest CT in 6 months to ensure stability is recommended. 3. Prominent precarinal lymph node which is also likely benign. This can be assessed on the follow-up chest CT." -it is unlikely that these have anything to do with cancer and findings like these are very common on CTs. For precaution sake, another chest CT is recommended in 6 months to make sure these resolve or stay the same I prescribed nebulizers to try instead of the Trelegy inhaler. This could be less expensive for you. Unfortunately only two of the three ingredients can be replaced by nebulizers so its possible that it doesn't work as well. It was a pleasure taking care of you in the hospital, Miryam Polanco MD Total Time Total Time Spent Total Time Spent (In Minutes): I personally spent: 45 minutes today on clinical care activities including: reviewing chart notes and vital signs reviewing labs reviewing studies discussion with child care counselor examining and counseling the patient writing orders writing prescriptions, discharge instructions documentation Coding Level of Care Code 64495 INP/OBS DISCH >30 MIN Diagnoses Hypotension I95.9 Acute and chronic respiratory failure with hypoxia J96.21 Elevated troponin R79.89 Increased abdominal girth R19.8 Bilateral arm weakness R29.898
--- NOTE | 2025-05-05 10:14 | Coding Query ---
To promote full compliance with coding requirements relating to patient care, provider participation is requested in all cases of correspondent uncertainty. Please assist us with the question(s) below: Coding Question(s): The diagnosis below was documented in the ER and H&P, then subsequently fell off all further documentation. Please indicate if it is still a possible diagnosis or ruled out. Physician's Response(s): POSSIBLE SEPSIS (ER documents, "Care discussed with Dr. Maynard will evaluate the patient for admission. He requests antibiotics for possible sepsis", and the H&P documents, "Hypotension concern for sepsis at this point in time") ( ) Diagnosed Possible Sepsis. Please specify below, in your clinical opinion, the most likely cause/source of Possible Sepsis: ( ) most likely possible UTI ( ) most likely Other: Please Specify ( ) unknown most likely source ( ) Ruled out ( ) Other (please specify) She had possible UTI, however, I do not think she had sepsis. Rather, she has isolated low blood pressure in her right arm where all her blood pressures were taken (because of lymphedema in right arm), which was discovered later in the hospital course. This is further detailed in my discharge summary. JUANI
== END 2025-05-04 17:03 | disposition home or self-care (01) | DRG 314 ==
LOC: ED 10:11 → 2S 13:09 → SUATTDRO 13:09 → 2S 18:35